=== PATIENT | male | born 1985 ===

== ENCOUNTER 2016-09-23 13:50 | Emergency (ER) | payer BC ==
--- NOTE | 2016-09-23 14:18 | UC ---
Throat Pain/Nasal Jules HPI - HPI Summary HPI Summary: Sore throat for 4 days---getting worse pain up in to left ear. no nausea, no fever - History of Current Complaint Chief Complaint: UCRespiratory Stated Complaint: SORE THROAT,ORAL COMPLAINT Time Seen by Provider: 09/23/16 14:11 Hx Obtained From: Patient Onset/Duration: Lasting Days - 7, Worse Since - past 2 Severity: Moderate Pain Intensity: 6 Pain Scale Used: 0-10 Numeric Cough: None Associated Signs & Symptoms: Positive: Negative - Allergies/Home Medications Allergies/Adverse Reactions: Allergies Allergy/AdvReac Type Severity Reaction Status Date / Time Pseudoephedrine Allergy Hives Verified 09/23/16 14:10 Home Medications: Home Medications Doxycycline (Rosacea) [Doxycycline] 100 mg PO BID 09/23/16 [History Confirmed ] predniSONE TAB* [Deltasone TAB*] 20 mg PO DAILY 09/23/16 [History Confirmed 08/07] PMH/Surg Hx/FS Hx/Imm Hx Previously Healthy: Yes - chronic ulceration lower leg - Surgical History Surgical History: None - Family History Known Family History: Positive: None - Social History Occupation: Unemployed Lives: With Family Alcohol Use: Occasionally Substance Use Type: None Smoking Status (MU): Never Smoked Tobacco Review of Systems Constitutional: Negative Skin: Negative Eyes: Negative ENT: Sore Throat, Ear Ache - left Respiratory: Negative Cardiovascular: Negative Gastrointestinal: Negative Genitourinary: Negative Motor: Negative Neurovascular: Negative Musculoskeletal: Negative Neurological: Negative Psychological: Negative All Other Systems Reviewed And Are Negative: Yes Physical Exam Triage Information Reviewed: Yes Appearance: Well-Appearing, No Pain Distress, Well-Nourished Vital Signs: Initial Vital Signs Temp 98.4 F 09/23/16 14:02 Pulse 116 09/23/16 14:02 Resp 24 09/23/16 14:02 BP 142/82 09/23/16 14:02 Pulse Ox 100 09/23/16 14:02 Vital Signs Reviewed: Yes Eye Exam: Normal Eyes: Positive: Conjunctiva Clear ENT Exam: Normal ENT: Positive: Normal ENT inspection, Hearing grossly normal, Pharyngeal erythema, TMs normal, Tonsillar swelling, Tonsillar exudate. Negative: Nasal congestion, Nasal drainage, Trismus, Muffled/hoarse voice Dental Exam: Normal Neck exam: Normal Neck: Positive: Supple, Nontender, Enlarged Nodes @ Respiratory Exam: Normal Respiratory: Positive: Chest non-tender, Lungs clear, Normal breath sounds, No respiratory distress, No accessory muscle use Cardiovascular Exam: Normal Cardiovascular: Positive: No Murmur, Pulses Normal, Brisk Capillary Refill, Tachycardia Abdominal Exam: Normal Abdomen Description: Positive: Nontender, No Organomegaly, Soft Bowel Sounds: Positive: Present Musculoskeletal Exam: Normal Musculoskeletal: Positive: Strength Intact, ROM Intact, No Edema Neurological Exam: Normal Neurological: Positive: Alert, Muscle Tone Normal Psychological Exam: Normal Psychological: Positive: Normal Response To Family Skin Exam: Normal Diagnostics - Laboratory Diagnostic Studies Completed/Ordered: RST (-) Throat Pain/Nasal Course/Dx - Course Assessment/Plan: send full throat culture, pain control, ice, throat sprays and michael. follow with pcp - Differential Dx/Diagnosis Differential Diagnosis/HQI/PQRI: Peritonsillar Abscess, Pharyngitis, Sinusitis, URI Provider Diagnoses: Viral pharyngitis Discharge - Discharge Plan Condition: Stable Disposition: HOME Prescriptions: Hydrocodone-Acetaminophen [Hydrocodone/Acetaminophen 5-325 mg] 1 tab PO Q6H PRN #10 tab MDD 4 PRN Reason: Pain Patient Education Materials: Pharyngitis (ED), Viral Syndrome (ED) Referrals: Ariel Dooley [Primary Care Provider] - 3 Days
[2016-09-23 14:22] VITALS: BP 142/82
== END 2016-09-23 14:59 | disposition home or self-care (01) ==
LOC: UCCORT 13:50
DX: J02.9 Acute pharyngitis, unspecified (principal); H92.02 Otalgia, left ear; Z88.8 Allergy status to other drugs, medicaments and biological substances
CPT/HCPCS: 87070; 87651; 99211; G0463